=== PATIENT | female | born 1940 | race Caucasian/White ===

== ENCOUNTER 2016-11-03 08:35 | Day surgery (SDC) | payer MEDICARE ==
[~2016-11-03] VITALS: Ht 152.4 cm; Wt 54.0 kg
[~2016-11-03 08:35] MED LIST: 0.9% Sodium Chloride 1,000 ML IV PRN; ALBU18HF INH; ALBU2.5V4 INHALATION; CALC1TAB23 PO; FLUT15.88 NS; KEN25CR EXT; LEVO75TA4 PO; MONT10TA20 PO; MULT-1018 PO; OMEP20CA11 PO; PRAV20TA2 PO; Sodium Chloride LOK Flush 10 mL Syringe IV PRN; fentaNYL-PF 50 mCg/mL 2 mL Inj IVPUSH PRN
[2016-11-03 09:20] VITALS: BP 131/73; PULSE 80; RESP 14; O2SAT 93
--- NOTE | 2016-11-03 10:21 | PCM.ENDCOL ---
Colonoscopy Date of Service: Nov 03, 2016 Physician Nimesh Sprague MD Pre Procedure Diagnosis: Screening history of polyp Post Procedure Dx & Findings: Polyp hemorrhoids diverticuli Procedure Colonoscopy PROCEDURE IN DETAIL: Prep adequate Withdrawal time 15 minutes After unremarkable rectal examination the Olympus video colonoscope was inserted patient's anal canal and was advanced to cecum. Landmarks were identified including the ileocecal valve and appendiceal orifice. Scope was withdrawn systematically. Visualized colonic mucosa showed healthy shiny mucosa with normal healthy-appearing vasculature. In the cecum there were 2 polyps. One of them was less than a millimeter. This was removed completely using cold forceps. The other one was about 5 mm which was removed completely using cold snare. In the transverse colon there was another 5 mm polyp which was removed completely using cold snare. In the sigmoid colon there were multiple diverticuli somewhat more quite large. At 20 cm from the anal verge, one of the diverticula seem to be irritated. This was noted when we are going into the colon. However she is not having abdominal pain. In the rectum retroflexion was done which showed hemorrhoids. Anal canal was inspected carefully on the way out and hemorrhoids noted. Impression Polyp 3 status post complete removal Diverticuli and one of them seemed to be irritated. But she has no abdominal pain. Hemorrhoids Recommendation Repeat colonoscopy 3 years Diverticular diet Follow up in the GI clinic in about 3 months. Presedation Assessment Risks and Benefits Informed consent was obtained from the patient after all risks and benefits including but not limited to drug reaction, infection, pain, bleeding, perforation, as well as alternatives were discussed. Patient monitoring Continuous pulse oximetry, cardiac monitoring, blood pressure monitoring, IV access, and oxygen at 2L per nasal cannula. Periprocedural Lidocaine: Other Midazolam: Midazolam 3mg Incrementally Complications There were no periprocedural complications identified. Post Procedure Plan Post Procedure Recommendations 1. Restrict activities today. 2. Resume normal activities in the morning. 3. Resume medications. 4. Patient informed of normal post procedure side effects as bloating, drowsiness, blood streaking in the stool. 5. average risk CRCS. If colon polyps come back as: -Hyperplastic- can repeat colonoscopy in 10 years -Tubular adenoma- repeat colonoscopy in 5 years -Tubulovillous/villous adenoma- repeat colonoscopy in 3 years -If any dysplasia- return to clinic as soon as possible 6. Please don't hesitate to call me with any questions. Nimesh Sprague MD Nov 03, 2016 10:21
[2016-11-03 10:23] VITALS: BP 125/58; PULSE 72; RESP 16; O2SAT 95
[2016-11-03 10:31] VITALS: BP 121/80; PULSE 73; RESP 14; O2SAT 97
--- NOTE | 2016-11-04 14:04 | PATH ---
SURGICAL PATHOLOGY Attending Physician:Nimesh Sprague M.D. CASE STATUS: Signed Out PATIENT NAME: TANA BAIRD PID: [id number] : 1940 DATE COLLECTED:11/03/2016 19:40 SPECIMEN: 1: Colon, Biopsy 2: Colon, Biopsy CLINICAL HISTORY: 1). CECUM POLYPS 2). DESCENDING COLON POLYP FINAL DIAGNOSIS: 1.CECUM POLYPS: SESSILE SERRATED ADENOMAS. 2.DESCENDING COLON POLYP: SESSILE SERRATED ADENOMA. ICD10 CODE D12.0 D12.4 GROSS DESCRIPTION: The specimen is received in two formalin filled containers labeled with the patient's name. 1). The specimen is sublabeled "cecum polyps" and consists of 3 portions of tissue which aggregate to 0.4 x 0.4 x 0.2 CM. The specimen is entirely submitted in cassettes 1A. 2). The specimen is sublabeled "descending colon polyp" and consists of 4 portions of tissue which aggregate to 0.3 x 0.3 x 0.3 CM. The specimen is entirely submitted in cassette 2A. 11/03/2016 [facility] MICRO DESCRIPTION: See diagnosis. ICD-9 CODES: CPT CODES: 1: 96766 2: 41304 Electronically Signed Out Angela Rowe MD [facility] Pathology [facility] [address], [place] [address] Technical component performed at [facility], [facility] [address], [place], [address]
== END 2016-11-03 23:59 | disposition home or self-care (01) ==
LOC: END 08:35
PROVIDERS: ATTEND Internal Medicine
DX: Z12.11 Encounter for screening for malignant neoplasm of colon (principal); D12.0 Benign neoplasm of cecum; D12.4 Benign neoplasm of descending colon; K57.30 Diverticulosis of large intestine without perforation or abscess without bleeding; K64.8 Other hemorrhoids; Z86.010 Personal history of colon polyps; I10 Essential (primary) hypertension; J45.909 Unspecified asthma, uncomplicated; E03.9 Hypothyroidism, unspecified; E78.5 Hyperlipidemia, unspecified; K22.70 Barrett's esophagus without dysplasia; B02.29 Other postherpetic nervous system involvement; B02.23 Postherpetic polyneuropathy; Z79.51 Long term (current) use of inhaled steroids
CPT/HCPCS: 45385; 88305; 99153; G0500; J2175; J2250; J7030